=== PATIENT | male | born 1980 | race Caucasian/White ===

== ENCOUNTER 2023-10-19 19:08 | Emergency (ER) | payer SELFPAY ==
[2023-10-19 19:09] VITALS: BP 138/90; PULSE 101; RESP 20; TEMP 36.7; O2SAT 96; BMI 23.7
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
[2023-10-19] MEDS: sodium chloride 0.9% 1,000 ML 999 ML IV (19:28)
[2023-10-19 19:29] LABS: Basophils # 0.1 10^3/uL (0.0-0.1); Basophils % 0.6 %; Eosinophils # 0.1 10^3/uL (0.0-0.8); Hematocrit 45.1 % (37-53); Lymphocytes # 3.2 10^3/uL (0.8-4.8); Lymphocytes % 34.1 %; Mean Corpuscular HGB Conc 34.4 g/dL (30-55); Mean Corpuscular Hemoglobin 32.6 pg (27-33); Mean Corpuscular Volume 94.7 fl (82-101); Mean Platelet Volume 8.9 fL (7.4-10.4); Monocytes # 0.7 10^3/uL (0.2-0.9); Monocytes % 7.9 %; Neutrophils # 5.26 10^3/uL (1.8-7.7); Nucleated Red Blood Cells % 0 %; Platelet Count 312 10^3/cmm (157-399); Red Blood Count 4.76 10^6/uL (3.85-5.65); Red Cell Distribution Width 12.1 % (12.1-15.1)
[2023-10-19] MEDS: haloperidol inj 5 mg/mL INJ 1 mL 3 MG IVP (19:29)
[2023-10-19 19:31] VITALS: RESP 10; O2SAT 94
[2023-10-19] MEDS: morphine 4 mg/mL SDV 1 mL IVP (19:31)
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
[2023-10-19] MEDS: iohexol 350 mg/mL 500 mL Btl (per mL) IV (19:42)
[2023-10-19 19:49] LABS: INR 0.87 (0.8-1.2)
[2023-10-19 19:55] LABS: Alanine Aminotransferase 18 U/L (0-41); Albumin Level 4.6 g/dL (3.5-5.2); Alkaline Phosphatase 79 U/L (40-130); Anion Gap 15.6 (5-19); Aspartate Amino Transferase 26 U/L (0-40); Blood Urea Nitrogen 10 mg/dL (6-20); Calcium 8.4 mg/dL (8.5-10.5); Carbon Dioxide 25 mmol/L (22-29); Chloride 111 mmol/L (98-107); Creatine Phosphokinase 255 U/L (39-308); Creatinine Clr Calc Pharmacy 133.2385; Globulin 2.9 g/dL (1.3-4.6); Glucose 89 mg/dL (65-115); Osmolality Calculated 305 mOsm/kg (285-295); Potassium 3.6 mmol/L (3.5-5.1); Sodium 148 mmol/L (136-145); Total Bilirubin 0.4 mg/dL (0.15-1.2); Total Protein 7.5 g/dL (6.6-8.7)
[2023-10-19 19:56] LABS: Alcohol Level 381 mg/dL (0-10)
[2023-10-19 20:04] VITALS: BP 130/80; PULSE 98; RESP 17; O2SAT 94
[2023-10-19 22:17] VITALS: BP 128/88; PULSE 95; RESP 22; O2SAT 97
== END 2023-10-19 20:10 | disposition home or self-care (01) ==
PROVIDERS: Emergency Provider Emergency Medicine
DX: F10.129 Alcohol abuse with intoxication, unspecified (principal); Y90.8 Blood alcohol level of 240 mg/100 ml or more; S01.111A Laceration without foreign body of right eyelid and periocular area, initial encounter; V89.2XXA Person injured in unspecified motor-vehicle accident, traffic, initial encounter
CPT/HCPCS: 12011; 70450; 70486; 71260; 72125; 74177; 80053; 80307; 82550; 85025; 85610; 85730; 86140; 86850; 86900; 96361; 96374; 96375; 99285; J1630; J2270; J7030; Q9967